=== PATIENT | male | born 1945 | race Caucasian/White ===

== ENCOUNTER 2017-03-31 15:32 | Emergency (ER) | payer MEDICARE ==
[2017-03-31] MEDS: IPRATROPIUM 0.5MG/ALBUTEROL 2.5MG INH SOL UD 3ML (DUONEB)(J7620) NEB (19:30)
== END 2017-03-31 21:00 | disposition home or self-care (01) ==
LOC: M ED 15:32
DX: J18.0 Bronchopneumonia, unspecified organism (principal); R91.1 Solitary pulmonary nodule; I44.7 Left bundle-branch block, unspecified; Z85.46 Personal history of malignant neoplasm of prostate
CPT/HCPCS: 71046

== ENCOUNTER → 2017-04-19 | Outpatient (CLI) | payer MEDICARE | LOC: M ADAMS 13:04 | DX: J18.9 Pneumonia, unspecified organism (principal) | CPT/HCPCS: 71046 ==

== ENCOUNTER 2017-05-08 16:16 | Inpatient (IN) | payer MEDICARE ==
[2017-05-08 17:40] LABS: VENOUS BASE EXCESS -1.5 (-2.0-2.0); VENOUS HCO3 24.8 MEQ/L (23.0-27.0); VENOUS O2 SATURATION 59.4 % (60.0-80.0); VENOUS PARTIAL PRESSURE CO2 47.3 mmHg (38.0-50.0); VENOUS PARTIAL PRESSURE O2 34.7 mmHg (30.0-50.0); VENOUS PH 7.338 UNITS (7.330-7.430); VENOUS STANDARD HCO3 22.1 MEQ/L; VENOUS TOTAL CO2 26.3 MEQ/L (24.0-28.0)
[2017-05-08 17:41] LABS: BASO # 0.1 10^3/uL (0.0-0.2); BASO % 0.7 % (0.0-1.0); EOS # 0.1 10^3/uL (0.0-0.50); EOS % 1.7 % (0.0-3.0); HEMATOCRIT 50.6 % (42.0-52.0); HEMOGLOBIN 16.8 g/dl (14.0-18.0); IMMATURE GRANULOCYTE % 0.4 % (0-3.0); LYMPH # 1.3 10^3/uL (1.5-4.5); LYMPH % 15.6 % (24.0-44.0); MEAN CORPUSCULAR HEMOGLOBIN 30.4 pg (27.0-33.0); MEAN CORPUSCULAR HGB CONC 33.2 g/dl (32.0-36.5); MEAN CORPUSCULAR VOLUME 91.7 fl (80.0-96.0); MONO # 0.4 10^3/uL (0.0-0.8); NEUTROPHILS # 6.3 10^3/uL (1.8-7.7); NEUTROPHILS % 76.6 % (36.0-66.0); PLATELET COUNT, AUTOMATED 202 10^3/uL (150-450); RED BLOOD COUNT 5.52 10^6/uL (4.30-6.10); RED CELL DISTRIBUTION WIDTH 14.4 % (11.5-14.5); WHITE BLOOD COUNT 8.2 10^3/uL (4.0-10.0)
[2017-05-08 17:56] LABS: INR 1.15; PROTHROMBIN TIME 14.9 SECONDS (12.4-14.5)
[2017-05-08 18:01] LABS: ANION GAP 9 MEQ/L (8-16); BLOOD UREA NITROGEN 26 MG/DL (7-18); CALCIUM LEVEL 8.9 MG/DL (8.8-10.2); CARBON DIOXIDE LEVEL 28 MEQ/L (21-32); CHLORIDE LEVEL 107 MEQ/L (98-107); CK-MB VALUE MASS 8.3 NG/ML (0.0-3.6); CPK CREATINE PHOSPHOKINASE 139 U/L (39-308); CREATININE FOR GFR 1.19 MG/DL (0.70-1.30); GLOMERULAR FILTRATION RATE > 60.0 (>42); GLUCOSE, FASTING 114 MG/DL (70-100); MB/CK RELATIVE INDEX 5.97 (< OR =4); POTASSIUM SERUM 4.6 MEQ/L (3.5-5.1); SODIUM LEVEL 144 MEQ/L (136-145); TROPONIN I 0.04 NG/ML (< 0.10)
[2017-05-08 18:06] LABS: ALBUMIN 3.6 GM/DL (3.2-5.2); ALBUMIN/GLOBULIN RATIO 1.33 (1.00-1.93); ALKALINE PHOSPHATASE 85 U/L (45-117); ALT/SGPT 99 U/L (12-78); AST/SGOT 57 U/L (7-37); BILIRUBIN,DIRECT 0.3 MG/DL (0.0-0.2); BILIRUBIN,TOTAL 0.9 MG/DL (0.2-1.0); THYROXINE (T4) 8.9 UG/DL (4.5-12.0); TOTAL PROTEIN 6.3 GM/DL (6.4-8.2)
[2017-05-08 18:19] LABS: NT-PRO BNP 11431 PG/ML (<125)
[2017-05-08] MEDS ORDERED: guaiFENesin ER 600 MG TAB PO (19:45)
[2017-05-08] MEDS ORDERED: ISOVUE-370 76% 100ML VIAL (Q9967) As Ordered (19:50)
[2017-05-08] MEDS: FUROSEMIDE 40 MG/4 ML VIAL (J1940) IV (19:53)
[2017-05-08] MEDS: ASPIRIN 81 MG ENTERIC TAB PO (22:22)
[2017-05-08] MEDS: DOCUSATE SODIUM 100 MG CAP PO (22:22)
[2017-05-08] MEDS: PANTOPRAZOLE 40MG TAB (PROTONIX) PO (22:22)
[2017-05-08] MEDS: ENOXAPARIN 40 MG/0.4 ML SYRINGE (J1650) SC (22:25)
[2017-05-08] MEDS: ENTRESTO 24-26MG TABLET (SACUBITRIL/VALSARTAN) PO (22:50)
[2017-05-08] MEDS: FUROSEMIDE 20 MG/2 ML VIAL (J1940) IV (23:54)
[2017-05-09 01:32] LABS: CK-MB VALUE MASS 6.5 NG/ML (0.0-3.6); CPK CREATINE PHOSPHOKINASE 124 U/L (39-308); MB/CK RELATIVE INDEX 5.24 (< OR =4); TROPONIN I 0.05 NG/ML (< 0.10)
[2017-05-09 04:44] LABS: HEMATOCRIT 47.7 % (42.0-52.0); HEMOGLOBIN 15.8 g/dl (14.0-18.0); MEAN CORPUSCULAR HEMOGLOBIN 29.9 pg (27.0-33.0); MEAN CORPUSCULAR HGB CONC 33.1 g/dl (32.0-36.5); MEAN CORPUSCULAR VOLUME 90.3 fl (80.0-96.0); PLATELET COUNT, AUTOMATED 193 10^3/uL (150-450); RED BLOOD COUNT 5.28 10^6/uL (4.30-6.10); RED CELL DISTRIBUTION WIDTH 14.2 % (11.5-14.5); WHITE BLOOD COUNT 9.6 10^3/uL (4.0-10.0)
[2017-05-09 05:00] LABS: ESTIMATED AVERAGE GLUCOSE 123 MG/DL (60-110); HEMOGLOBIN A1c 5.9 %
[2017-05-09 05:15] LABS: ANION GAP 7 MEQ/L (8-16); BLOOD UREA NITROGEN 21 MG/DL (7-18); CALCIUM LEVEL 8.5 MG/DL (8.8-10.2); CARBON DIOXIDE LEVEL 33 MEQ/L (21-32); CHLORIDE LEVEL 105 MEQ/L (98-107); CHOLESTEROL LEVEL 200 MG/DL (<200); CHOLESTEROL RISK RATIO 3.448 (<5); CK-MB VALUE MASS 6.5 NG/ML (0.0-3.6); CPK CREATINE PHOSPHOKINASE 129 U/L (39-308); CREATININE FOR GFR 1.19 MG/DL (0.70-1.30); GLOMERULAR FILTRATION RATE > 60.0 (>42); GLUCOSE, FASTING 83 MG/DL (70-100); HDL CHOLESTEROL 58 MG/DL (>40); LDL CHOLESTEROL 129.6 MG/DL (<100); MAGNESIUM LEVEL 2.1 MG/DL (1.8-2.4); MB/CK RELATIVE INDEX 5.03 (< OR =4); NON-HDL-C 142 MG/DL; POTASSIUM SERUM 3.9 MEQ/L (3.5-5.1); SODIUM LEVEL 145 MEQ/L (136-145); TRIGLYCERIDES LEVEL 62 MG/DL (<150); TROPONIN I 0.06 NG/ML (< 0.10)
[2017-05-09] MEDS: FUROSEMIDE 20 MG/2 ML VIAL (J1940) IV (05:32)
[2017-05-09] MEDS: ENTRESTO 24-26MG TABLET (SACUBITRIL/VALSARTAN) PO ×2 (08:28→20:59)
[2017-05-09] MEDS: ASPIRIN 81 MG ENTERIC TAB PO (08:28)
[2017-05-09] MEDS: DOCUSATE SODIUM 100 MG CAP PO ×2 (08:28→20:58)
[2017-05-09] MEDS: METOPROLOL SUCC *XL* 12.5MG PER 1/2 TAB (TopROL *XL*) PO (09:00)
[2017-05-09] MEDS ORDERED: METOPROLOL SUCC *XL* 25MG TAB (TopROL *XL*) PO (09:00)
[2017-05-09] MEDS: PANTOPRAZOLE 40MG TAB (PROTONIX) PO (20:59)
[2017-05-09] MEDS: ENOXAPARIN 40 MG/0.4 ML SYRINGE (J1650) SC (20:59)
[2017-05-10] MEDS: ENTRESTO 24-26MG TABLET (SACUBITRIL/VALSARTAN) PO (09:31)
[2017-05-10] MEDS: DOCUSATE SODIUM 100 MG CAP PO (09:31)
[2017-05-10] MEDS: ASPIRIN 81 MG ENTERIC TAB PO (09:31)
[2017-05-10] MEDS: METOPROLOL SUCC *XL* 12.5MG PER 1/2 TAB (TopROL *XL*) PO (09:32)
[2017-05-10 09:43] LABS: HEMATOCRIT 51.7 % (42.0-52.0); HEMOGLOBIN 17.1 g/dl (14.0-18.0); MEAN CORPUSCULAR HEMOGLOBIN 30.3 pg (27.0-33.0); MEAN CORPUSCULAR HGB CONC 33.1 g/dl (32.0-36.5); MEAN CORPUSCULAR VOLUME 91.7 fl (80.0-96.0); PLATELET COUNT, AUTOMATED 214 10^3/uL (150-450); RED BLOOD COUNT 5.64 10^6/uL (4.30-6.10); RED CELL DISTRIBUTION WIDTH 14.3 % (11.5-14.5); WHITE BLOOD COUNT 8.3 10^3/uL (4.0-10.0)
[2017-05-10 10:01] LABS: ANION GAP 7 MEQ/L (8-16); BLOOD UREA NITROGEN 23 MG/DL (7-18); CALCIUM LEVEL 8.5 MG/DL (8.8-10.2); CARBON DIOXIDE LEVEL 31 MEQ/L (21-32); CHLORIDE LEVEL 106 MEQ/L (98-107); CREATININE FOR GFR 1.32 MG/DL (0.70-1.30); GLOMERULAR FILTRATION RATE 56.4 (>42); GLUCOSE, FASTING 99 MG/DL (70-100); MAGNESIUM LEVEL 2.1 MG/DL (1.8-2.4); POTASSIUM SERUM 4.1 MEQ/L (3.5-5.1); SODIUM LEVEL 144 MEQ/L (136-145)
== END 2017-05-10 14:13 | disposition home or self-care (01) | DRG 293 ==
LOC: M ED 16:16 → M ED INP 19:07 → M ICU 21:20
DX: I50.43 Acute on chronic combined systolic (congestive) and diastolic (congestive) heart failure (principal); I71.2 Thoracic aortic aneurysm, without rupture; I49.3 Ventricular premature depolarization; I44.7 Left bundle-branch block, unspecified; Z85.46 Personal history of malignant neoplasm of prostate; N40.0 Benign prostatic hyperplasia without lower urinary tract symptoms; Z87.891 Personal history of nicotine dependence

== ENCOUNTER 2017-05-13 04:00 | Emergency (ER) | payer MEDICARE ==
[2017-05-13] MEDS: FUROSEMIDE 40 MG/4 ML VIAL (J1940) IV (05:06)
[2017-05-13 05:11] LABS: BASO # 0.1 10^3/uL (0.0-0.2); BASO % 1.1 % (0.0-1.0); EOS # 0.5 10^3/uL (0.0-0.50); HEMATOCRIT 48.8 % (42.0-52.0); IMMATURE GRANULOCYTE % 0.3 % (0-3.0); LYMPH # 2.1 10^3/uL (1.5-4.5); LYMPH % 28.3 % (24.0-44.0); MEAN CORPUSCULAR HEMOGLOBIN 30.1 pg (27.0-33.0); MEAN CORPUSCULAR HGB CONC 32.8 g/dl (32.0-36.5); MEAN CORPUSCULAR VOLUME 91.9 fl (80.0-96.0); MONO # 0.4 10^3/uL (0.0-0.8); MONO % 5.6 % (0.0-5.0); NEUTROPHILS # 4.4 10^3/uL (1.8-7.7); NEUTROPHILS % 58.7 % (36.0-66.0); PLATELET COUNT, AUTOMATED 206 10^3/uL (150-450); RED BLOOD COUNT 5.31 10^6/uL (4.30-6.10); RED CELL DISTRIBUTION WIDTH 14.6 % (11.5-14.5); WHITE BLOOD COUNT 7.5 10^3/uL (4.0-10.0)
[2017-05-13 05:40] LABS: ANION GAP 6 MEQ/L (8-16); BLOOD UREA NITROGEN 31 MG/DL (7-18); CALCIUM LEVEL 8.6 MG/DL (8.8-10.2); CARBON DIOXIDE LEVEL 29 MEQ/L (21-32); CHLORIDE LEVEL 109 MEQ/L (98-107); CREATININE FOR GFR 1.13 MG/DL (0.70-1.30); GLOMERULAR FILTRATION RATE > 60.0 (>42); GLUCOSE, FASTING 93 MG/DL (70-100); SODIUM LEVEL 144 MEQ/L (136-145)
[2017-05-13 05:44] LABS: NT-PRO BNP 6791 PG/ML (<125)
== END 2017-05-13 06:52 | disposition home or self-care (01) ==
LOC: M ED 04:00
DX: I50.9 Heart failure, unspecified (principal); Z79.899 Other long term (current) drug therapy; Z79.82 Long term (current) use of aspirin; Z87.891 Personal history of nicotine dependence
CPT/HCPCS: J1940

== ENCOUNTER → 2017-05-17 | Outpatient (CLI) | payer MEDICARE ==
[2017-05-17 11:38] LABS: ANION GAP 5 MEQ/L (8-16); BLOOD UREA NITROGEN 34 MG/DL (7-18); CALCIUM LEVEL 8.9 MG/DL (8.8-10.2); CARBON DIOXIDE LEVEL 32 MEQ/L (21-32); CHLORIDE LEVEL 104 MEQ/L (98-107); CREATININE FOR GFR 1.39 MG/DL (0.70-1.30); GLOMERULAR FILTRATION RATE 53.2 (>42); GLUCOSE, FASTING 96 MG/DL (70-100); POTASSIUM SERUM 4.6 MEQ/L (3.5-5.1); SODIUM LEVEL 141 MEQ/L (136-145)
== END ==
LOC: M LAB 10:51
DX: E87.8 Other disorders of electrolyte and fluid balance, not elsewhere classified (principal)
CPT/HCPCS: 80048